=== PATIENT | male | born 1960 | race Caucasian/White ===

== ENCOUNTER 2021-03-08 17:14 | Emergency (ER) | payer BC ==
[2021-03-08] MEDS ORDERED: ONDANSETRON 4 MG/2 ML VIAL IVPUSH ONE (17:30)
[2021-03-08] MEDS ORDERED: ONDANSETRON 4 MG/2 ML VIAL ONE (17:30)
[2021-03-08 17:54] LABS: BASO % 0.7 % (0-2.0); EOS % 0.1 % (0-4.5); HEMATOCRIT 45.9 % (35.4-49); HEMOGLOBIN 15.3 GM/dL (11.7-16.9); LYMPH % 44.7 % (8-40); MCH 28.6 pg (25.7-33.7); MCHC 33.3 g/dl (32.0-35.9); MEAN CELL VOLUME 85.6 fl (80-96); MEAN PLT VOLUME 8.5 fl (7.5-11.1); MONO % 2.4 % (3.8-10.2); NEUT % 52.1 % (42.8-82.8); PLATELET COUNT 285 10^3/uL (134-434); RBC 5.36 M/mm3 (4.00-5.60); RDW 14.5 % (11.9-15.9); WHITE BLOOD COUNT 3.6 K/mm3 (4.0-10.0)
[2021-03-08 18:01] VITALS: TEMP 96.2; BMI 27.6
[2021-03-08 18:03] LABS: INR 1.04 (0.83-1.09)
[2021-03-08 18:05] LABS: CHLORIDE 107 mmol/L (98-107); SODIUM 141 mmol/L (136-145)
[2021-03-08 18:06] LABS: ACTIVATED PTT 27.6 SECONDS (25.2-36.5)
[2021-03-08 18:08] LABS: ANION GAP 8 MMOL/L (8-16); CALCIUM 9.2 mg/dL (8.5-10.1); CO2 26 mmol/L (21-32)
[2021-03-08 18:09] LABS: ALBUMIN 3.6 g/dl (3.4-5.0); GLUCOSE,RANDOM 194 mg/dL (74-106)
[2021-03-08 18:11] LABS: CREATININE 0.9 mg/dL (0.55-1.3); SGPT/ALT 36 U/L (13-61)
[2021-03-08 18:12] LABS: CHOLESTEROL 153 mg/dL (50-200); SGOT/AST 24 U/L (15-37); TRIGLYCERIDES 64 mg/dL (0-150)
[2021-03-08 18:13] LABS: BILIRUBIN,TOTAL 0.4 mg/dL (0.2-1); HDL CHOLESTEROL 54 mg/dL (40-60); LDL CHOLESTEROL (ONLY SJRH) 86 mg/dL (5-100); TOT PROT 6.8 g/dl (6.4-8.2)
[2021-03-08 18:14] LABS: ALK PHOS 66 U/L (45-117)
[2021-03-08] MEDS ORDERED: RAPID SEQUENCE INTUBATION KIT NR ONE (18:30)
[2021-03-08] MEDS ORDERED: PROPOFOL 1,000,000 MCG/100 ML VIAL ONE (18:38)
[2021-03-08] MEDS ORDERED: ROCURONIUM BROMIDE 50 MG/5 ML VIAL IVPUSH ONE (18:54)
[2021-03-08] MEDS ORDERED: SODIUM CHLORIDE 1,000 ML IV STA (18:54)
[2021-03-08] MEDS ORDERED: ETOMIDATE 40 MG/20 ML VIAL IVPUSH ONE (18:54)
[2021-03-08] MEDS ORDERED: PROPOFOL 1,000,000 MCG/100 ML VIAL IVPB SCH (19:00)
[2021-03-08] MEDS ORDERED: FENTANYL IVPB 500 MCG/100 ML BAG IVPB SCH (19:30)
[2021-03-08] MEDS ORDERED: fentaNYL CITRATE 250 MCG/5 ML VIAL ONE (19:33)
[2021-03-08 20:09] VITALS: BP 109/64; PULSE 98
[2021-03-08 20:24] LABS: PH,URINE 6.5 (5.0-8.0); URINE APPEARANCE CLEAR; URINE BILIRUBIN NEGATIVE (NEGATIVE); URINE COLOR YELLOW; URINE GLUCOSE (UA) TRACE (NEGATIVE); URINE KETONE 1+ (NEGATIVE); URINE LEUK ESTERASE NEGATIVE (NEGATIVE); URINE NITRITE NEGATIVE (NEGATIVE); URINE PROTEIN NEGATIVE (NEGATIVE)
[2021-03-08 20:35] LABS: PHENCYCLIDINE,URINE NEGATIVE (NEGATIVE)
[2021-03-08 20:36] LABS: COCAINE, UR NEGATIVE (NEGATIVE); METHADONE, UR NEGATIVE (NEGATIVE); OPIATES, URI NEGATIVE (NEGATIVE)
[2021-03-08 20:37] LABS: URINE AMPHETAMINES NEGATIVE (NEGATIVE); URINE BARBITURATES NEGATIVE (NEGATIVE); URINE BENZODIAZEPINES NEGATIVE (NEGATIVE)
== END 2021-03-08 19:45 | disposition short-term general hospital (02) ==
LOC: JER 17:14
PROC: 0BH17EZ Insertion of Endotracheal Airway into Trachea, Via Natural or Artificial Opening (ICD-10-PCS; principal; 2021-03-08)
PROC: 3E033GC Introduction of Other Therapeutic Substance into Peripheral Vein, Percutaneous Approach (ICD-10-PCS; 2021-03-08)
DX: R41.82 Altered mental status, unspecified (principal); R47.1 Dysarthria and anarthria; R27.0 Ataxia, unspecified; R42 Dizziness and giddiness
CPT/HCPCS: 36415; 70450-TC; 70496-TC; 70498-TC; 71045-TC-FY; 80053; 80061; 80307; 81003; 82550; 82962; 83036; 84484; 85025; 85610; 85730; 86850; 86900; 86901; 93005; 93010; 99291; C9803; U0003; U0005